=== PATIENT | female | born 1955 | race Hispanic/Latino ===

== ENCOUNTER → 2018-07-03 | Outpatient (CLI) | payer OTHER, MEDICARE | END | disposition home or self-care (01) | LOC: OIH 11:15 | PROVIDERS: ATTEND Family Medicine | DX: M25.762 Osteophyte, left knee (principal); M25.561 Pain in right knee | CPT/HCPCS: 73562 ==

== ENCOUNTER → 2019-01-15 | Outpatient (CLI) | payer OTHER, MEDICARE | END | disposition home or self-care (01) | LOC: RAH 10:09 | PROVIDERS: ATTEND Family Medicine | DX: Z12.31 Encounter for screening mammogram for malignant neoplasm of breast (principal) | CPT/HCPCS: 77067 ==

== ENCOUNTER → 2020-04-28 | Outpatient (CLI) | payer OTHER, MEDICARE | END | disposition home or self-care (01) | LOC: RAH 12:54 | PROVIDERS: ATTEND Family Medicine | DX: I67.82 Cerebral ischemia (principal); D32.0 Benign neoplasm of cerebral meninges ==

== ENCOUNTER → 2020-05-12 | Outpatient (CLI) | payer OTHER, MEDICARE ==
[~2020-05-12] MED LIST: REGADENOSON 0.4 MG/5 ML PF SYG IVP SCH
== END | disposition home or self-care (01) ==
LOC: RAH 08:49
PROVIDERS: ATTEND Family Medicine
DX: I20.9 Angina pectoris, unspecified (principal); R07.9 Chest pain, unspecified; D32.0 Benign neoplasm of cerebral meninges; R51 Headache; R42 Dizziness and giddiness
CPT/HCPCS: 78452; 93017; 96374; A9500 ×2; J2785

== ENCOUNTER → 2021-12-30 | Outpatient (CLI) | payer OTHER, MEDICARE | END | disposition home or self-care (01) | LOC: SHCH 09:43 | PROVIDERS: ATTEND Internal Medicine Cardiovascular Disease | DX: I35.8 Other nonrheumatic aortic valve disorders (principal); I20.9 Angina pectoris, unspecified; I11.9 Hypertensive heart disease without heart failure; E11.9 Type 2 diabetes mellitus without complications; E78.5 Hyperlipidemia, unspecified; E66.9 Obesity, unspecified; I87.2 Venous insufficiency (chronic) (peripheral) | CPT/HCPCS: 93306; 93970 ==

== ENCOUNTER → 2022-01-01 | Outpatient (CLI) | payer OTHER, MEDICARE ==
[~2022-01-01] VITALS: Ht 152.4 cm; Wt 98.4 kg
== END | disposition home or self-care (01) ==
LOC: SHCH 07:58
PROVIDERS: ATTEND Internal Medicine Cardiovascular Disease
DX: I20.9 Angina pectoris, unspecified (principal); R94.39 Abnormal result of other cardiovascular function study
CPT/HCPCS: 78452; 93017; 96374; A9500 ×2; J2785

== ENCOUNTER → 2022-02-18 | Outpatient (CLI) | payer OTHER, MEDICARE ==
[~2022-02-18] MED LIST changes: +DiphenhydrAMINE HCL 50 MG/ML VIAL ONE; +IOHEXOL 350 MG/ML 100ML INFUS..BTL IV ONE; +IOHEXOL-350 50ML VIAL IV ONE; -REGADENOSON 0.4 MG/5 ML PF SYG IVP SCH
== END | disposition home or self-care (01) ==
LOC: RAH 08:19
PROVIDERS: ATTEND Internal Medicine Cardiovascular Disease
DX: I73.9 Peripheral vascular disease, unspecified (principal)
CPT/HCPCS: 75635; J1200; Q9967 ×2

== ENCOUNTER 2022-03-12 05:58 | Day surgery (SDC) | payer OTHER, MEDICARE ==
[2022-03-10 11:30] LABS: BASOPHILS % (AUTO) 0.7 % (0.0-5.0); EOSINOPHILS % (AUTO) 4.2 % (0.0-8.0); HEMATOCRIT 39.3 % (36-48); LYMPHOCYTES % (AUTO) 39.7 % (21.0-51.0); MEAN CORPUSCULAR HEMOGLOBIN 31.4 pg (27.0-33.0); MEAN CORPUSCULAR HGB CONC 32.6 g/dL (32.0-36.0); MEAN CORPUSCULAR VOLUME 96.6 fL (79-99); MONOCYTES % (AUTO) 7.6 % (3.0-13.0); NEUTROPHILS % (AUTO) 47.5 % (40.0-77.0); PLATELET COUNT (AUTO) 166 K/uL (130-400); RED BLOOD CELL COUNT(AUTO) 4.07 MIL/uL (4.00-5.50); RED CELL DISTRIBUTION WIDTH 12.4 % (11.0-15.5); WHITE BLOOD COUNT (AUTO) 7.3 K/uL (4.8-10.8)
[2022-03-10 11:37] LABS: CREATININE 0.9 mg/dL (0.5-1.5); POTASSIUM 4.5 mmol/L (3.5-5.1)
[2022-03-10 11:40] LABS: APPEARANCE,URINE Clear (CLEAR); BILIRUBIN,URINE Negative (NEGATIVE); COLOR,URINE Yellow (YELLOW); GLUCOSE, URINE (UA) Negative (NEGATIVE); KETONES,URINE Negative (NEGATIVE); LEUKOCYTE ESTERASE ,URINE Small (NEGATIVE); NITRATE,URINE Negative (NEGATIVE); OCCULT BLOOD,URINE Nonhemolyzed Trace (NEGATIVE); PROTEIN,URINE Negative (NEGATIVE)
[2022-03-10 11:58] LABS: BACTERIA,URINE Rare /HPF (None Seen); RBC,URINE 0-1 /HPF (0-1); SQUAMOUS EPITHELIAL CELL,UR Rare /HPF (0-2); WBC,URINE 0-1 /HPF (0-1)
[2022-03-10 11:59] LABS: B-TYPE NATRIURETIC PEPTIDE 53 pg/mL (0-100)
[2022-03-10 12:02] LABS: INR 0.95 (0.85-1.15); PROTHROMBIN TIME 10.4 SEC (9.6-11.6)
[2022-03-11 11:01] VITALS: BP 171/80
[~2022-03-12] VITALS: Ht 152.4 cm; Wt 102.0 kg
[2022-03-12] VITALS (10 sets, daily range): BP systolic 105–143; BP diastolic 46–68
[~2022-03-12 05:58] MED LIST changes: +0.9% NACL 500ML IV.SOLN 500 ML IV SCH; +AEC81 PO; +DILT120T PO; -DiphenhydrAMINE HCL 50 MG/ML VIAL ONE; +ESCI-8 PO; +FOLIC ACID PO; +FURO20TA4 PO; +GABA-529 PO; +GLIP5TAB11 PO; +HYDR200T4 PO; -IOHEXOL 350 MG/ML 100ML INFUS..BTL IV ONE; -IOHEXOL-350 50ML VIAL IV ONE; +LEVO75TA10 PO; +LINA72CA PO; +LISI40TA9 PO; +LORA10TA7 PO; +METH2.5T6 PO; +OMEP-272 PO; +PRED20TA3 PO; +ROSU20TA31 PO; +VITAMIN D PO
[2022-03-12] MEDS ORDERED: 0.9%NACL 1000ML 1,000 ML IV ONE (06:20)
[2022-03-12] MEDS ORDERED: BIVALIRUDIN 250 MG/VIAL IV ONE (07:04)
[2022-03-12] MEDS ORDERED: LIDOCAINE HCL 1% 10 ML VIAL ONE (07:04)
[2022-03-12] MEDS ORDERED: NITROGLYCERIN 50MG VIAL ONE (07:05)
[2022-03-12] MEDS ORDERED: IOHEXOL-350 75 ML VIAL IV ONE (07:05)
[2022-03-12] MEDS ORDERED: NICARDIPINE 25MG INJ IV ONE (07:05)
[2022-03-12] MEDS ORDERED: IOHEXOL-350 50ML VIAL IV ONE (07:05)
[2022-03-12] MEDS ORDERED: HEPARIN 10,000 UNIT/10ML (1,000 UNIT/ML) VIAL ONE (07:05)
[2022-03-12] MEDS ORDERED: SOLU-MEDROL 125MG VIAL ONE (07:06)
[2022-03-12] MEDS ORDERED: MIDAZOLAM HCL 1 MG/ML 2ML VIAL ONE ×2 (07:06→08:07)
[2022-03-12] MEDS ORDERED: FENTANYL CITRATE PF 50 MCG/1 ML 2ML VIAL ONE (07:06)
[2022-03-12] MEDS ORDERED: SOLU-MEDROL 125MG VIAL IVP SCH (08:00)
[2022-03-12] MEDS ORDERED: GLUCAGON 1MG KIT 1 MG ML IM PRN (09:00)
[2022-03-12] MEDS ORDERED: DEXTROSE 50%-WATER 50 ML DISP.SYRIN IV PRN (09:00)
[2022-03-12] MEDS ORDERED: NITROGLYCERIN 0.4 MG SL TAB SL PRN (09:00)
[2022-03-12] MEDS ORDERED: 0.9%NACL 1000ML 1,000 ML IV SCH (09:00)
[2022-03-12] MEDS ORDERED: INSULIN HUMULIN R 100 UNIT/ML 3ML ONE (09:32)
[2022-03-12] MEDS ORDERED: INSULIN HUMULIN R 100 UNIT/ML 3ML SQ SCH (11:30)
== END 2022-03-12 13:45 | disposition home or self-care (01) ==
LOC: DAH 05:58
PROVIDERS: ATTEND Internal Medicine Cardiovascular Disease
DX: I25.119 Atherosclerotic heart disease of native coronary artery with unspecified angina pectoris (principal); I11.0 Hypertensive heart disease with heart failure; I50.32 Chronic diastolic (congestive) heart failure; E11.51 Type 2 diabetes mellitus with diabetic peripheral angiopathy without gangrene; E78.5 Hyperlipidemia, unspecified; E66.01 Morbid (severe) obesity due to excess calories; M06.9 Rheumatoid arthritis, unspecified; Z68.41 Body mass index [BMI] 40.0-44.9, adult; E03.9 Hypothyroidism, unspecified; I87.2 Venous insufficiency (chronic) (peripheral); Z87.891 Personal history of nicotine dependence; Z90.710 Acquired absence of both cervix and uterus; Z90.49 Acquired absence of other specified parts of digestive tract; Z98.890 Other specified postprocedural states; Z98.51 Tubal ligation status; Z82.49 Family history of ischemic heart disease and other diseases of the circulatory system; Z83.3 Family history of diabetes mellitus; Z80.0 Family history of malignant neoplasm of digestive organs; Z79.01 Long term (current) use of anticoagulants; Z79.899 Other long term (current) drug therapy; Z79.4 Long term (current) use of insulin
CPT/HCPCS: 36415; 80048; 81001; 82948 ×2; 83880; 85025; 85610; 85730; 93005; 93458; A4215; A4216; A4221; A4222; A4223 ×3; A4606; A4663; C1769 ×2; C1887; C1894 ×2; J1644 ×2; J1815; J2250 ×2; J2930; J3010; J3490 ×3; J7030; Q9967; 96360; 96361; 99156; 99157; J0583

== ENCOUNTER → 2023-12-06 | Outpatient (CLI) | payer OTHER, MEDICARE ==
[~2023-12-06] MED LIST changes: -0.9% NACL 500ML IV.SOLN 500 ML IV SCH; -GLIP5TAB11 PO; +GLIP5TAB15 PO; -HYDR200T4 PO; +HYDR200T75 PO; -PRED20TA3 PO; -ROSU20TA31 PO; +ROSU20TA73 PO
== END | disposition home or self-care (01) ==
LOC: RAH 08:37
PROVIDERS: ATTEND Family Medicine
DX: Z12.31 Encounter for screening mammogram for malignant neoplasm of breast (principal); N63.11 Unspecified lump in the right breast, upper outer quadrant; R92.323 Mammographic fibroglandular density, bilateral breasts
CPT/HCPCS: 77067